=== PATIENT | female | born 1980 | race Caucasian/White ===

== ENCOUNTER 2025-02-28 21:11 | Emergency (ER) | payer MEDICAID ==
[~2025-02-28] VITALS: Ht 160 cm; Wt 86.0 kg
--- NOTE | 2025-02-28 21:20 | Physician Documentation ---
History of Present Illness ~ Stated Complaint: SYNCOPE Time Seen by MD: 21:18 [facility] 44-year-old female presents to the ED from home where she began acting abnormal and had a witnessed syncopal episode. He is currently denying any substance ingestion. She is a poor historian and appears to be having false visualizations or hallucinations. Eyes were glazed pinpoint pupils. She denies taking any ketamine or any other illicit substances does report drinking alcohol ,currently protecting airway and answering questions. Day of Ingestion: Feb 28, 2025 Medication Reconciliation Allergies: Coded Allergies: No Known Allergies (Unverified , 02/28/25) Review of Systems All Other Systems at this time: Reviewed and Negative ROS As stated above in the HPI, otherwise all systems are reviewed and negative. Physical Exam Physical Exam General: Alert answering questions appears intoxicated Respiratory: Lungs clear, no respiratory distress. Cardiovascular: Tachycardic and rhythm, no murmurs. Neurologic: Oriented x4. Psychiatric: Anxious appearing Skin: Normal color, warm and dry. No edema, no ecchymosis. Progress Results/Orders Results/Orders Medications Received in ER Medications (Trade) Dose Ordered Sig/Arie Route PRN Reason Start Time Stop Time Status Last Admin Dose Admin (Narcan 0.4mg/ml inj) 0.4 mg ONCE ONCE IV 02/28/25 21:20 02/28/25 21:21 DC 02/28/25 21:22 0.4 MG Sodium Chloride 1,000 ml @ 1,000 mls/hr ONCE ONCE IV 02/28/25 21:30 02/28/25 22:29 DC 02/28/25 21:32 1,000 MLS/HR (ipratrop/ albuterol 0.5-3(2.5) MG/3ml nebule) 3 ml ONCE STAT NEB 02/28/25 21:50 02/28/25 21:51 DC 02/28/25 22:00 3 ML Vital Signs 02/28/25 02/28/25 02/28/25 02/28/25 21:17 21:22 21:51 22:00 Pulse 124 122 105 Resp 16 24 20 24 B/P (MAP) 193/120 193/120 Pulse Ox 97 94 O2 Delivery Room Air* O2 Flow Rate 0 0 FiO2 N/A 02/28/25 02/28/25 22:07 23:31 Pulse 108 105 Resp 20 B/P (MAP) 158/62 (94) Pulse Ox 99 98 O2 Delivery Room Air* O2 Flow Rate 0 FiO2 N/A Laboratory Tests Test 02/28/25 21:28 02/28/25 21:45 02/28/25 22:39 White Blood Count 9.3 Red Blood Count 5.11 Hemoglobin 11.7 L Hematocrit 36.7 Mean Corpuscular Volume 71.8 L Mean Corpuscular Hemoglobin 22.9 L Mean Corpuscular Hemoglobin Concent 32.0 L Red Cell Distribution Width 19.9 H Platelet Count 382 Mean Platelet Volume 7.8 Neutrophils (%) (Auto) 57.2 Lymphocytes (%) (Auto) 30.6 Monocytes (%) (Auto) 6.1 Eosinophils (%) (Auto) 5.4 Basophils (%) (Auto) 0.7 Neutrophils # (Auto) 5.3 Lymphocytes # (Auto) 2.9 Monocytes # (Auto) 0.6 Eosinophils # (Auto) 0.5 Basophils # (Auto) 0.1 CBC Comment Platelet Estimate Normal Red Blood Cell Morphology Perf Basophilic Stippling Anisocytosis 1+ Microcytosis F Sodium Level 142 Potassium Level 3.5 Chloride Level 101 Carbon Dioxide Level 27.8 Anion Gap 13 Blood Urea Nitrogen 5 L Creatinine 0.93 H Estimated GFR/1.73 m2 66 BUN/Creatinine Ratio 5.4 L Glucose Level 135 H Calcium Level 8.9 Total Bilirubin 0.4 Aspartate Amino Transf (AST/SGOT) 100 H Alanine Aminotransferase (ALT/SGPT) 52 Alkaline Phosphatase 179 H Total Protein 8.2 Albumin 3.6 Globulin 4.6 H Albumin/Globulin Ratio 0.8 L Chemistry Comments Glucometer 136 H Urine Specimen Description Cln catch midstream Urine Color Straw Urine Clarity Cloudy Urine pH 6.0 Urine Specific [place] >=1.030 Urine Protein 30 H Urine Glucose (UA) 100 H Urine Ketones Trace H Urine Occult Blood Large H Urine Nitrite Negative Urine Bilirubin Moderate Urine Urobilinogen 4.0 H Urine Leukocyte Esterase Negative Urine RBC 50-100 Urine WBC 0-4 Urine Squamous Epithelial Cells Moderate Urine Bacteria None seen Urine Hyaline Casts 0-3 Urine Mucus Many Urine Culture Indicated Not ind Volume Urine Centrifuged 10 ml Urine Comment Urine Opiates Screen Negative Urine Methadone Screen Negative Urine Fentanyl Screen Negative Urine Barbiturates Screen Negative Urine Phencyclidine Screen Negative Urine Amphetamines Screen Positive Urine Benzodiazepines Screen Negative Urine Cocaine Screen Negative Urine Cannabinoids Screen Negative Drug Screen Comment EKG/XRAY/CT/US/VASC/MRI EKG : Additional Comment EKG interpreted by Dr. Wiseman shows time of 10/26/2032, rate 106, sinus tachycardia, normal axis, no ST changes Medical Decision Making Findings Patient received fluids her and laboratory values were mostly unremarkable other than her tox screen which tested positive for methamphetamine. This was a big surprise for her significant other. I can not state exactly what the patient took an addition to methamphetamine as she initially presented somnolent and having what appeared to be hallucinations. Based on the tox screen panel that we have I suspect that she would tested positive for something that we did not test for. At this point ,she is improving overall going to place her essentially on a medication weight or observation for the time being. One two advised the the nursing staff to discharge the patient when she has reached an appropriate and safe baseline. Differential Dx:Considerations: Include: Alcohol abuse, Anxiety, Bipolar disorder, Conversion disorder, Delirium, Depression, Drug Overdose-Accidental, Drug Overdose-Intentional, Encephalopathy, Hallucinations, Homicidal, Liver failure, Panic disorder, Personality disorder, Renal failure, Respiratory failure, Schizophrenia, Substance abuse, Suicidal attempt, Suidical gesture, Other Departure Disposition: 01 HOME / SELF CARE / HOMELESS Impression: Primary Impression: Overdose Condition: Stable Discharge Instructions: Methamphetamines Use Disorder Referrals: NO PRIMARY CARE PROVIDER (PCP) Signature Scribe Signature: b Attestation: Scribed for Luis Alberto Tavares Elevator Runner by Luis Alberto Strickland NP . 02/28/25 23:46 LUIS ALBERTO TAVARES NP Feb 28, 2025 21:20 YO WISEMAN MD Mar 01, 2025 00:27
[2025-02-28] MEDS: naloxone 0.4 mg/ml inj IV ONE (21:22)
[2025-02-28] MEDS: normal saline 1000ml 1,000 ML IV ONE (21:32)
[2025-02-28 21:35] LABS: HEMOGLOBIN 11.7 g/dl (12.0-16.0); WHITE BLOOD COUNT 9.3 X10'3 (4.5-11.0)
[2025-02-28 21:40] LABS: BASOPHILS # (AUTO) 0.1 X10'3 (0-0.2); BASOPHILS % (AUTO) 0.7 % (0-1); EOSINOPHILS # (AUTO) 0.5 X10'3 (0-0.9); EOSINOPHILS % (AUTO) 5.4 % (0-6); HEMATOCRIT 36.7 % (35.0-45.0); LYMPHOCYTES # (AUTO) 2.9 X10'3 (1.1-4.8); LYMPHOCYTES % (AUTO) 30.6 % (21-51); MEAN CORPUSCULAR HEMOGLOBIN 22.9 PG (27.0-31.0); MEAN CORPUSCULAR VOLUME 71.8 FL (78-98); MEAN PLATELET VOLUME 7.8 FL (7.4-10.4); MONOCYTES # (AUTO) 0.6 X10'3 (0-0.9); MONOCYTES % (AUTO) 6.1 % (2-12); NEUTROPHILS # (AUTO) 5.3 X10'3 (1.8-7.7); NEUTROPHILS % (AUTO) 57.2 % (42-75); PLATELET COUNT 382 X10'3 (140-440); RED BLOOD COUNT 5.11 X10'6 (4.20-5.60); RED CELL DISTRIBUTION WIDTH 19.9 % (11.5-14.5)
[2025-02-28 21:50] LABS: ALANINE AMINOTRANSFERASE 52 U/L (12-78); ALBUMIN 3.6 G/DL (3.4-5.0); ALBUMIN/GLOBULIN RATIO 0.8 (1.1-1.5); ALKALINE PHOSPHATASE 179 IU/L (46-116); ANION GAP 13 (8-16); ASPARTATE AMINO TRANSFERASE 100 U/L (10-37); BILIRUBIN,TOTAL 0.4 MG/DL (0.1-1.0); BLOOD UREA NITROGEN 5 MG/DL (7-18); BUN/CREATININE RATIO 5.4 (10.0-20.0); CALCIUM 8.9 MG/DL (8.5-10.1); CHLORIDE 101 MMOL/L (99-107); CREATININE 0.93 MG/DL (0.40-0.90); GLUCOSE 135 MG/DL (70-104); POTASSIUM 3.5 MMOL/L (3.5-5.1); SODIUM 142 MMOL/L (135-145); TOTAL CARBON DIOXIDE 27.8 MMOL/L (24-32); TOTAL PROTEIN 8.2 G/DL (6.4-8.2); eCRCL 65 ML/MIN; eGFR 66 ML/MIN
[2025-02-28 22:00] VITALS: PULSE 105; RESP 24
[2025-02-28] MEDS: ipratropium/albuterol 3ml nebule NEB STA (22:00)
[2025-02-28 22:04] LABS: PLATELET ESTIMATE NORMAL
[2025-02-28 22:05] LABS: ANISOCYTOSIS 1+; MICROCYTOSIS F
[2025-02-28 22:07] VITALS: PULSE 108; O2SAT 99
[2025-02-28 22:47] LABS: BILIRUBIN,URINE MODERATE (Neg); CLARITY,URINE CLOUDY (Clear); COLOR,URINE STRAW (Yellow); GLUCOSE, URINE 100 mg/dl (Neg); KETONES,URINE TRACE mg/dl (Neg); LEUKOCYTE ESTERASE ,URINE NEGATIVE (Neg); NITRITES, URINE NEGATIVE (Neg); OCCULT BLOOD,URINE LARGE (Neg); PROTEIN,URINE 30 mg/dl (Neg)
[2025-02-28 22:48] LABS: UA COLLECTION TYPE CLN CATCH MIDSTREAM
[2025-02-28 22:52] LABS: RBC,URINE 50-100 /HPF (0-2); SQUAMOUS EPITHELIAL CELL,UR MODERATE /LPF (FEW)
[2025-02-28 22:53] LABS: BACTERIA,URINE NONE SEEN /HPF (Neg); MUCUS STRANDS MANY /LPF (Neg); WBC,URINE 0-4 /HPF (0-4)
[2025-02-28 22:54] LABS: HYALINE CASTS 0-3 /LPF (NEGATIVE)
[2025-02-28 23:32] LABS: URINE AMPHETAMINE SCREEN POSITIVE (Neg); URINE BARBITUATE SCREEN NEGATIVE (Neg); URINE BENZODIAZEPINES SCREEN NEGATIVE (Neg); URINE CANNABINOID SCREEN NEGATIVE (Neg); URINE COCAINE SCREEN NEGATIVE (Neg); URINE METHADONE SCREEN NEGATIVE (Neg); URINE OPIATE SCREEN NEGATIVE (Neg); URINE PHENCYCLIDINE SCREEN NEGATIVE (Neg)
[2025-03-01 00:32] VITALS: BP 162/91; PULSE 99; RESP 18; O2SAT 96
--- NOTE | 2025-03-01 06:10 | ELECTROCARDIOGRAPH REPORT ---
[facility] Test Date: 2025-02-28 Test Time: 22:33:51 Pat Name: [facility] Department: EMERGENCY ROOM [id number] Room: Gender: F Heart Nurse: : 1980 Requested By: OLIVIA PHELAN Order Number: [id number] Reading MD: Dr. David Flores Measurements Intervals [place] Rate: 106 P: 79 FL: 151 QRS: 57 QRSD: 84 T: 85 QT: 355 QTc: 472 Interpretive Statements Sinus tachycardia Probable left atrial enlargement Nonspecific T abnrm, anterolateral leads Baseline wander in lead(s) V6 Electronically Signed On 03-02-2025 18:24:[address] David Flores Please click the below link to view image of tracing.
== END 2025-03-01 00:39 | disposition home or self-care (01) ==
LOC: ER 21:11
DX: T43.651A Poisoning by methamphetamines accidental (unintentional), initial encounter (principal); R55 Syncope and collapse; Z79.899 Other long term (current) drug therapy; Y92.89 Other specified places as the place of occurrence of the external cause
CPT/HCPCS: 36415; 80053; 80305; 81001; 82948; 85025; 93005; 94640; 96361; 96374; 99284; J2310; J7030; 85008